=== PATIENT | male | born 1945 | race Caucasian/White ===

== ENCOUNTER 2017-01-17 20:51 | Emergency (ER) | payer MEDICARE, BC ==
[~2017-01-17] VITALS: Ht 175.3 cm; Wt 47.7 kg
[~2017-01-17 20:51] MED LIST: ALEN70TA30 PO; AMOX1TAB67 PO; ASPI-664 PO; DILT240C79 PO; LACT20SO12 PO; LAMO100T PO; LEVE10006 PO; METF-382 PO; POLY17PO6 PO; SITA100T8 PO
[2017-01-17 21:03] VITALS: Ht 175.3 cm; Wt 47.7 kg
[2017-01-17 23:16] VITALS: BP 133/96; PULSE 113; RESP 23
--- NOTE | 2017-01-18 00:02 | ERD ---
ER Documentation Chief Complaint Date/Time DATE: 01/18/17 TIME: 00:01 Chief Complaint URETHRAL CATH NOT DRAINING C/O LOWER ABD PAIN HPI This is a 71-year-old male was brought in because his Carpio catheter is not draining. He denies any fevers or chills. Subphrenic 6 hours ago. No other current complaints. ROS All systems reviewed and are negative except as per history of present illness. Medications Home Meds Active Scripts Amoxicillin-Clavulanate K* (Augmentin*) 500 Mg Tab, 500 MG PO BID for 10 Days, TAB Prov:ODESSA ALICIA 05/15/16 Polyethylene Glycol* (Miralax*) 17 Gm/Pkt Liq, 17 GM PO DAILY, #30 PACKET 5 Refills Prov:MARCO OLIVEIRA MD 04/21/15 Lactulose* (Cephulac*) 20 Gm/30 Ml Soln, 20 GM PO DAILY, #1 BOTTLE 5 Refills Prov:MARCO OLIVEIRA MD 04/21/15 Sitagliptin* (Januvia*) 100 Mg Tab, 100 MG PO DAILY, #30 TAB 5 Refills Prov:MARCO OLIVEIRA MD 04/21/15 Reported Medications Aspirin (Low Dose Aspirin) 81 Mg Tablet.dr, 81 MG PO DAILY, #30 TAB 04/13/16 Lamotrigine* (Lamotrigine*) 100 Mg Tablet, 100 MG PO BID, TAB 12/19/15 Levetiracetam* (Levetiracetam*) 1,000 Mg Tablet, 1000 MG PO BID, #60 10/21/15 Alendronate Sodium* (Fosamax*) 70 Mg Tablet, 70 MG PO Q7DAYS, #4 10/21/15 Diltiazem Hcl* (Cardizem CD*) 240 Mg Cap.sr.24h, 240 MG PO DAILY, CAP 04/09/15 Metformin Hcl* (Metformin Hcl*) 500 Mg Tablet, 500 MG PO DAILY, TAB 04/09/15 Allergies Allergies: Coded Allergies: Sulfa (Sulfonamide Antibiotics) (Verified Allergy, Unknown, RASH, 05/15/16) PER DR VIGIL- PT WAS TAKING AUGMENTIN AT HOME- NO PROBLEMS W/ PCN- OK TO GIVE ZOSYN (05/15/16) cephalexin (Verified Allergy, Unknown, 04/13/16) nitrofurantoin (Verified Allergy, Unknown, 04/13/16) PMhx/Soc History of Surgery: No Anesthesia Reaction: No Hx Neurological Disorder: Yes (SEIZURE, STROKE) Hx Respiratory Disorders: Yes (COPD) Hx Cardiac Disorders: Yes (HTN) Hx Psychiatric Problems: Yes (SCHIZOPHRENIA) Hx Miscellaneous Medical Probl: Yes (CVA, T2DM, HTN, neurogenic bladder, ) Hx Alcohol Use: No Hx Substance Use: No Hx Tobacco Use: No Smoking Status: Unknown if ever smoked Physical Exam Vitals Vital Signs Date Time Temp Pulse Resp B/P Pulse Ox O2 Delivery O2 Flow Rate FiO2 01/17/17 23:16 113 23 133/96 97 Room Air 01/17/17 21:03 98.5 127 22 157/104 94 Physical Exam Const: [] Head: Atraumatic Eyes: Normal Conjunctiva ENT: Normal External Ears, Nose and Mouth. Neck: Full range of motion..~ No meningismus. Resp: Clear to auscultation bilaterally Cardio: Regular rate and rhythm, no murmurs Abd: Soft, non tender, non distended. Normal bowel sounds Skin: No petechiae or rashes Back: No midline or flank tenderness Ext: No cyanosis, or edema Neur: Awake and alert Psych: Normal Mood and Affect Procedures/MDM Medical decision makin gentleman with a chronic Carpio catheter likely indicative of infection. Urinalysis and culture have been sent off. Carpio catheter has been changed. He is not draining properly. Patient be discharged with ciprofloxacin. Departure Diagnosis: Primary Impression: Genitourinary symptoms Additional Impression: Acute cystitis Hematuria presence: without hematuria Qualified Code: N30.00 - Acute cystitis without hematuria Condition: Stable YANELI NORTH Jan 18, 2017 00:02
[2017-01-18] MEDS ORDERED: CIPR500T4 PO (00:05)
[2017-01-18 01:20] LABS: ADD UMIC YES; URINE BILIRUBIN (Dip) NEGATIVE (NEGATIVE); URINE BLOOD (Dip) 1+ (NEGATIVE); URINE COLOR LT. YELLOW (YELLOW); URINE GLUCOSE (Dip) NEGATIVE (NEGATIVE); URINE KETONES (Dip) NEGATIVE (NEGATIVE); URINE LEUKOCYTE ESTERASE (Dip) 1+ (NEGATIVE); URINE NITRITE (Dip) NEGATIVE (NEGATIVE); URINE TOTAL PROTEIN (Dip) NEGATIVE (NEGATIVE); URINE UROBILINOGEN (Dip) 0.2 E.U./dL (0.1-1.0)
[2017-01-18 01:36] LABS: BACTERIA,URINE RARE; SQUAMOUS EPITHELIAL CELL,UR RARE
== END 2017-01-18 00:53 | disposition home or self-care (01) ==
LOC: E/R 20:51
DX: R39.89 Other symptoms and signs involving the genitourinary system (principal); N30.00 Acute cystitis without hematuria; J44.9 Chronic obstructive pulmonary disease, unspecified; E11.9 Type 2 diabetes mellitus without complications; I10 Essential (primary) hypertension; Z79.82 Long term (current) use of aspirin; Z79.84 Long term (current) use of oral hypoglycemic drugs
CPT/HCPCS: 81001; 81003; 87086

== ENCOUNTER 2017-02-16 17:16 | Emergency (ER) | payer MEDICARE, BC ==
[~2017-02-16] VITALS: Wt 47.7 kg
[~2017-02-16 17:16] MED LIST changes: +CIPR500T4 PO; -METF-382 PO; +METF500T4 PO
--- NOTE | 2017-02-16 18:51 | ERD ---
ER Documentation Chief Complaint Date/Time DATE: 02/16/17 TIME: 18:50 Chief Complaint replace fc HPI This 71-year-old male presents requesting a Carpio catheter replacement. He has chronic incontinence and had a Carpio replaced 3 days ago but it is leaking around the catheter soaking his beddings. He was advised that the Carpio was likely malfunctioning and is recommended to have replaced by his urologist. Denies fevers, vomiting, additional symptoms. ROS All systems reviewed and are negative except as per history of present illness. Medications Home Meds Active Scripts Ciprofloxacin Hcl* (Ciprofloxacin Hcl*) 500 Mg Tablet, 500 MG PO BID for 7 Days , TAB Prov:YANELI NORTH 01/18/17 Amoxicillin-Clavulanate K* (Augmentin*) 500 Mg Tab, 500 MG PO BID for 10 Days, TAB Prov:ODESSA ALICIA 05/15/16 Polyethylene Glycol* (Miralax*) 17 Gm/Pkt Liq, 17 GM PO DAILY, #30 PACKET 5 Refills Prov:MARCO OLIVEIRA MD 04/21/15 Lactulose* (Cephulac*) 20 Gm/30 Ml Soln, 20 GM PO DAILY, #1 BOTTLE 5 Refills Prov:MARCO OLIVEIRA MD 04/21/15 Sitagliptin* (Januvia*) 100 Mg Tab, 100 MG PO DAILY, #30 TAB 5 Refills Prov:MARCO OLIVEIRA MD 04/21/15 Reported Medications Aspirin (Low Dose Aspirin) 81 Mg Tablet.dr, 81 MG PO DAILY, #30 TAB 04/13/16 Lamotrigine* (Lamotrigine*) 100 Mg Tablet, 100 MG PO BID, TAB 12/19/15 Levetiracetam* (Levetiracetam*) 1,000 Mg Tablet, 1000 MG PO BID, #60 10/21/15 Alendronate Sodium* (Fosamax*) 70 Mg Tablet, 70 MG PO Q7DAYS, #4 10/21/15 Diltiazem Hcl* (Cardizem CD*) 240 Mg Cap.sr.24h, 240 MG PO DAILY, CAP 04/09/15 Metformin Hcl* (Metformin Hcl*) 500 Mg Tablet, 500 MG PO DAILY, TAB 04/09/15 Allergies Allergies: Coded Allergies: Sulfa (Sulfonamide Antibiotics) (Verified Allergy, Unknown, RASH, 05/15/16) PER DR VIGIL- PT WAS TAKING AUGMENTIN AT HOME- NO PROBLEMS W/ PCN- OK TO GIVE ZOSYN (05/15/16) cephalexin (Verified Allergy, Unknown, 04/13/16) nitrofurantoin (Verified Allergy, Unknown, 04/13/16) PMhx/Soc History of Surgery: No Anesthesia Reaction: No Hx Neurological Disorder: Yes (SEIZURE, STROKE) Hx Respiratory Disorders: Yes (COPD) Hx Cardiac Disorders: Yes (HTN) Hx Psychiatric Problems: Yes (SCHIZOPHRENIA) Hx Miscellaneous Medical Probl: Yes (CVA, T2DM, HTN, neurogenic bladder, ) Hx Alcohol Use: No Hx Substance Use: No Hx Tobacco Use: No Physical Exam Vitals Vital Signs Date Time Temp Pulse Resp B/P Pulse Ox O2 Delivery O2 Flow Rate FiO2 02/16/17 17:29 98.9 98 20 166/101 93 Physical Exam Const: [] Alert, no apparent distress, confined to a wheelchair Head: Atraumatic Eyes: Normal Conjunctiva ENT: Normal External Ears, Nose and Mouth. Neck: Full range of motion..~ No meningismus. Resp: Clear to auscultation bilaterally Cardio: Regular rate and rhythm, no murmurs Abd: Soft, non tender, non distended. Normal bowel sounds Skin: No petechiae or rashes Back: No midline or flank tenderness Ext: No cyanosis, or edema Neur: Awake and alert Psych: Normal Mood and Affect Procedures/MDM Carpio catheter was replaced without complications. Patient will be discharged home instructions return for fevers, vomiting, new worsening symptoms or primary care doctor this week. Signs or symptoms do not suggest sepsis, acute abdomen, additional emergent conditions. Departure Diagnosis: Primary Impression: Complication of Carpio catheter Encounter type: initial encounter Qualified Code: T83.9XXA - Complication of Carpio catheter, initial encounter Condition: Stable Patient Instructions: Carpio Catheter, Care Additional Instructions: Recheck with your urologist as scheduled or for new or worsening symptoms MAYELA WOOD MD Feb 16, 2017 18:51
[2017-02-16 19:02] VITALS: BP 161/97; PULSE 94; RESP 20; TEMP 98.5
== END 2017-02-16 19:03 | disposition home or self-care (01) ==
LOC: FTE 17:16
DX: T83.098A Other mechanical complication of other urinary catheter, initial encounter (principal); J44.9 Chronic obstructive pulmonary disease, unspecified; I10 Essential (primary) hypertension; E11.9 Type 2 diabetes mellitus without complications; Y73.2 Prosthetic and other implants, materials and accessory gastroenterology and urology devices associated with adverse incidents; Z79.82 Long term (current) use of aspirin; Z79.84 Long term (current) use of oral hypoglycemic drugs
CPT/HCPCS: 99283

== ENCOUNTER 2018-07-20 03:00 | Inpatient (IN) | END 2018-07-23 12:06 | disposition home or self-care (01) | DRG 378 ==